=== PATIENT | female | born 1985 | race Two or more races ===

== ENCOUNTER 2021-04-18 21:50 | Emergency (ER) | payer SELFPAY ==
[~2021-04-18] VITALS: Ht 157.5 cm; Wt 62.7 kg
[~2021-04-18 21:50] MED LIST: NOCURR
[2021-04-18 22:41] LABS: APPEARANCE,URINE CLEAR (CLEAR); BILIRUBIN,URINE NEGATIVE (NEGATIVE); GLUCOSE, URINE (UA) NEGATIVE (NEGATIVE); KETONES,URINE NEGATIVE (NEGATIVE); LEUKOCYTE ESTERASE ,URINE SMALL (NEGATIVE); NITRATE,URINE POSITIVE (NEGATIVE); OCCULT BLOOD,URINE NEGATIVE (NEGATIVE); PROTEIN,URINE NEGATIVE (NEGATIVE)
[2021-04-18 23:51] LABS: BACTERIA,URINE Few /HPF (None Seen); RBC,URINE None Seen /HPF (0-2); SQUAMOUS EPITHELIAL CELL,UR Few /LPF (None Seen)
[2021-04-19 01:24] VITALS: BP 138/80
== END 2021-04-19 02:08 | disposition home or self-care (01) ==
LOC: EMS 21:50
DX: N39.0 Urinary tract infection, site not specified (principal)
CPT/HCPCS: 81001; 84703; 99283

== ENCOUNTER 2022-10-20 23:14 | Emergency (ER) | payer SELFPAY ==
[~2022-10-20] VITALS: Ht 157.5 cm; Wt 67.0 kg
[2022-10-20 23:49] LABS: COVID AG,FIA SOURCE NASAL SWAB
[2022-10-21] MEDS ORDERED: ONDANSETRON HCL 4 MG/2 ML VIAL IVP ONE
[2022-10-21] MEDS ORDERED: MORPHINE SULFATE 4 MG/ML SYRINGE IVP ONE
[2022-10-21] MEDS ORDERED: SODIUM CHLORIDE 0.9% 1,000 ML IV ONE
[2022-10-21 00:06] LABS: BASOPHILS % (AUTO) 0.8 % (0.0-2.0); EOSINOPHILS % (AUTO) 1.9 % (1.0-6.0); HEMATOCRIT 37.3 % (36-46); HEMOGLOBIN 12.4 g/dL (12.0-16.0); LYMPHOCYTES # (AUTO) 2.7 K/uL (1.0-4.8); LYMPHOCYTES % (AUTO) 30.7 % (22.0-44.0); MEAN CORPUSCULAR HEMOGLOBIN 31.1 pg (26.0-34.0); MEAN CORPUSCULAR HGB CONC 33.2 G/dL (31.0-37.0); MEAN CORPUSCULAR VOLUME 94 fL (80-100); MONOCYTES # (AUTO) 0.7 K/uL (0.1-1.0); MONOCYTES % (AUTO) 8.1 % (2.0-9.0); NEUTROPHILS # (AUTO) 5.2 K/uL (1.8-7.7); NEUTROPHILS % (AUTO) 58.5 % (40.0-70.0); PLATELET COUNT (AUTO) 395 K/uL (150-450); RED BLOOD CELL COUNT(AUTO) 3.98 MIL/uL (4.00-5.20); RED CELL DISTRIBUTION WIDTH 12.9 % (11.5-14.5)
[2022-10-21 00:08] LABS: INFLUENZA TYPE A NEGATIVE FOR TYPE A (NEGATIVE); INFLUENZA TYPE B NEGATIVE FOR TYPE B (NEGATIVE)
[2022-10-21 00:17] LABS: ANION GAP 7 mmol/L (8-16); CALCIUM, TOTAL 9.7 mg/dL (8.8-10.5); CARBON DIOXIDE 34 mmol/L (22-29); CHLORIDE 98 mmol/L (98-107); CREATININE 0.58 mg/dL (0.60-1.30); GLUCOSE,RANDOM 116 mg/dL (70-110); POTASSIUM 3.1 mmol/L (3.5-5.1); SODIUM SERUM 139 mmol/L (136-145); UREA NITROGEN, BLOOD 10 mg/dL (7-18)
[2022-10-21 00:21] LABS: ALANINE AMINOTRANSFERASE 22 U/L (12-78); ALBUMIN 3.8 g/dL (3.4-5.0); ALKALINE PHOSPHATASE 83 U/L (46-116); ASPARTATE AMINOTRANSFERASE 16 U/L (15-37); BILIRUBIN,TOTAL 0.1 mg/dL (0.1-1.0); TOTAL PROTEIN, SERUM 7.8 g/dL (6.4-8.2)
[2022-10-21 00:24] LABS: GLOMERULAR FILTR. RATE CALC > 60 mL/min (>60)
[2022-10-21] MEDS ORDERED: POTASSIUM CHLORIDE 10% 40 MEQ/30 ML LIQUID UDCUP PO ONE (00:45)
[2022-10-21] MEDS ORDERED: PROM-163 PO (02:26)
[2022-10-21] MEDS ORDERED: ACET-66 PO (02:26)
[2022-10-21 02:35] VITALS: BP 145/88
== END 2022-10-21 02:34 | disposition home or self-care (01) ==
LOC: EMS 23:16
DX: G44.209 Tension-type headache, unspecified, not intractable (principal); R11.10 Vomiting, unspecified; Z20.822 Contact with and (suspected) exposure to COVID-19
CPT/HCPCS: 99284; 96374; 96361; 96375; 87426; 80053; 84703; 85025; 87804; 36415; 70450; J2270; J2405; J7030

== ENCOUNTER 2025-05-04 21:13 | Emergency (ER) | payer MEDICAID, OTHER ==
[~2025-05-04] VITALS: Ht 160 cm; Wt 69.5 kg
[~2025-05-04 21:13] MED LIST changes: +ACET650S24 PR; -NOCURR
[2025-05-04 21:20] VITALS: TEMP 100.2
[2025-05-04] MEDS: SODIUM CHLORIDE 0.9% 2,100 ML IV ONE (21:41)
[2025-05-04] MEDS: CefTRIAXone 1 GM/DEXTROSE 50 ML IV ONE (21:41)
[2025-05-04 21:45] LABS: PLATELET COUNT (AUTO) 406 K/uL (150-450); RED BLOOD CELL COUNT(AUTO) 3.96 MIL/uL (4.00-5.20); RED CELL DISTRIBUTION WIDTH 14.7 % (11.5-14.5); WHITE BLOOD COUNT (AUTO) 10.8 K/uL (4.5-11.0)
[2025-05-04 21:56] LABS: CALCIUM, TOTAL 9.0 mg/dL (8.8-10.5); CREATININE 0.58 mg/dL (0.60-1.30); GLOMERULAR FILTR. RATE CALC > 60 mL/min (>60); GLUCOSE,RANDOM 105 mg/dL (70-110); SODIUM SERUM 137 mmol/L (136-145); UREA NITROGEN, BLOOD 4 mg/dL (7-18)
[2025-05-04 21:56] LABS: APPEARANCE,URINE HAZY (CLEAR); GLUCOSE, URINE (UA) NEGATIVE (NEGATIVE); LEUKOCYTE ESTERASE ,URINE LARGE (NEGATIVE); NITRATE,URINE POSITIVE (NEGATIVE); OCCULT BLOOD,URINE TRACE (NEGATIVE); SPECIFIC GRAVITIY, URINE 1.006 (1.003-1.030)
[2025-05-04 22:11] LABS: LACTIC ACID 1.2 mmol/L (0.4-2.0)
[2025-05-04 22:14] LABS: SQUAMOUS EPITHELIAL CELL,UR Few /LPF (None Seen)
[2025-05-04] MEDS ORDERED: IOHEXOL 300 MG/ML 100 ML VIAL ONE (23:05)
[2025-05-04] MEDS ORDERED: SODIUM CHLORIDE 0.9% 100 ML ONE (23:05)
[2025-05-04 23:43] VITALS: BP 138/88; PULSE 104; RESP 18; O2SAT 97
[2025-05-05] MEDS: CIPROFLOXACIN 400 MG/D5% WATER 200 ML IV ONE (00:33)
[2025-05-05] MEDS: ACETAMINOPHEN 500 MG TABLET PO ONE (01:02)
== END 2025-05-05 02:25 | disposition home or self-care (01) ==
LOC: EMS 21:13
DX: N12 Tubulo-interstitial nephritis, not specified as acute or chronic (principal); Z79.899 Other long term (current) drug therapy
CPT/HCPCS: 99285; 74177; 96365; 71045; 80048; 81001; 83605; 84703; 85025; 87040; 87077; 87086; 87186; 36415; 93005; 84145; 96367; J0696; J7050; Q9967; J0744